=== PATIENT | female | born 1985 | race Caucasian/White ===

== ENCOUNTER 2017-07-05 17:49 | Inpatient (IN) | payer SELFPAY ==
[~2017-07-05] VITALS: Ht 154.9 cm; Wt 55.0 kg
[~2017-07-05 17:49] MED LIST: ACETAMINOPHEN500 M1 PO; CLEOCIN HCL150 MG PO; DOXYCYCLINE HY100 M2 PO; FLAGYL500 MG PO; IBUPROFEN200 MG PO; MOTRIN800 MG PO; PERCOCET 5/3251 TA1 PO
[2017-07-05 18:37] LABS: BASOPHILS 0.3 % (0-2); EOSINOPHILS 2.2 % (0-7); HEMATOCRIT 28.9 % (36.0-48.0); HEMOGLOBIN 9.5 g/dL (12-16); IMMATURE GRANULOCYTES 0.2 % (0-5); LYMPHOCYTES 17.5 % (15-50); MCH 28.4 pg (26.0-34.0); MCHC 32.9 g/dL (31.0-37.0); MCV 86.5 fL (80.0-100.0); MEAN PLATELET VOLUME 8.5 fL (7.4-10.4); MONOCYTES 9.1 % (2-11); NEUTROPHILS 70.7 % (40-80); RBC 3.34 10x6/uL (4.00-5.40); RDW 14.6 % (11.5-14.5); WBC 16.2 10x3/uL (4.8-10.8)
[2017-07-05 18:38] LABS: PLATELET COUNT 438 10x3/uL (130-400)
[2017-07-05 18:46] LABS: HCG SERUM NEGATIVE (NEGATIVE)
[2017-07-05 19:03] LABS: APPEARANCE HAZY (CLEAR); BILIRUBIN NEGATIVE (NEGATIVE); COLOR YELLOW (YELLOW); GLUCOSE NEGATIVE (NEGATIVE); KETONE NEGATIVE (NEGATIVE); LEUKOCYTE ESTERASE 1+ (NEGATIVE); NITRITE NEGATIVE (NEGATIVE); PROTEIN TRACE mg/dL (NEGATIVE); UROBILINOGEN NORMAL (NORMAL)
[2017-07-05 19:05] LABS: EPITHELIAL CELLS 0-5 /hpf (0-5); RED CELLS - URINE 0-5 /hpf (0-5)
[2017-07-05 19:07] LABS: BACTERIA FEW /hpf (NONE SEEN)
[2017-07-05 22:32] LABS: HCG SERUM NEGATIVE (NEGATIVE)
--- NOTE | 2017-07-05 23:30 | NUR ---
RECEIVED PT TO FLOOR FROM ER VIA STRETCHER. PT AMBULATED TO BED. DOXYCYCLINE INFUSING TO LEFT HAND/WRIST 18G IV. PT C/O PAIN AT IV SITE. IV HAS BLOOD RETURN AND IS PATENT. PT IS IV DRUG USER AND HAS LIMITED PLACES TO RESITE AN IV. PLACED ARM ON PILLOW AND SLOWED INFUSION. PT C/O ABDOMINAL PAIN 05/18. GAVE 1 TAB NORCO-10 FOR PAIN. PT EATING SANDWICH AND DRINKING SODA. REVIEWED HISTORY AND HOME MEDS. SPOKE WITH PT ABOUT HER DRUG USE AND SMOKING. GAVE RESOURCES AND ENCOURAGED N/A. PT DECLINED SMOKING COUNSELING BUT SAID SHE WOULD USE A NICOTINE. NO OTHER NEEDS. WILL REASSESS AND CONTINUE TO MONITOR.
[2017-07-05] MEDS ORDERED: ACETAMINOPHEN500 M1 PO (23:53)
[2017-07-06 01:28] VITALS: BP 124/86; Ht 154.9 cm; Wt 55.0 kg
[2017-07-06 04:00] VITALS: BP 101/62
[2017-07-06 08:09] VITALS: BP 115/65
--- NOTE | 2017-07-06 08:10 | NUR ---
ASSESSMENT PER FLOW SHEET.PT VERY SLEEPY THIS AM. DR DON HAS BEEN HERE TO SEE HER.PT IS WITHOUT DISTRESS.PAIN 2/10 SCALE TO LOWER AABDOMEN.CALL LIGHT IN REACH.
[2017-07-06 09:54] LABS: BASOPHILS 0.2 % (0-2); EOSINOPHILS 1.5 % (0-7); HEMATOCRIT 28.5 % (36.0-48.0); HEMOGLOBIN 9.2 g/dL (12-16); IMMATURE GRANULOCYTES 0.3 % (0-5); LYMPHOCYTES 11.7 % (15-50); MCHC 32.3 g/dL (31.0-37.0); MCV 86.6 fL (80.0-100.0); MEAN PLATELET VOLUME 8.6 fL (7.4-10.4); MONOCYTES 9.3 % (2-11); PLATELET COUNT 414 10x3/uL (130-400); RBC 3.29 10x6/uL (4.00-5.40); RDW 14.8 % (11.5-14.5); WBC 14.5 10x3/uL (4.8-10.8)
[2017-07-06 10:09] LABS: ALBUMIN 2.5 g/dL (3.4-5.0); ALKALINE PHOSPHATASE 83 U/L (46-116); ALT (SGPT) 26 U/L (10-68); CALC OSMOLALITY 270 mosm/kg (275-300); CALCIUM 8.4 mg/dL (8.5-10.1); CARBON DIOXIDE 24.1 mmol/L (21.0-32.0); CHLORIDE - SERUM 104 mmol/L (98-107); CREATININE - SERUM 0.6 mg/dL (0.6-1.3); GLUCOSE 102 mg/dL (74-106); POTASSIUM - SERUM 3.5 mmol/L (3.5-5.1); PROTEIN - SERUM 6.3 g/dL (6.4-8.2); SODIUM 137 mmol/L (136-145); UREA NITROGEN 4 mg/dL (7-18); eGFR NON AFRICAN AMERICAN > 90 mL/min (90-120)
--- NOTE | 2017-07-06 11:56 | NUR ---
REMAINS WITHOUT NEEDS.CALL LIGHT IN REACH
--- NOTE | 2017-07-06 12:04 | NUR ---
CALL TO PHARMACY FOR DOXYCYCLINE,SPOKE WITH LORENA
[2017-07-06 12:07] VITALS: BP 125/82
--- NOTE | 2017-07-06 15:44 | NUR ---
SLEEPING WITHOUT DISTRESS,WITHOUT SIGNS OF PAIN.MONITOR FOR NEEDS
[2017-07-06 16:06] VITALS: BP 113/62
[2017-07-06 19:00] VITALS: BP 122/70
--- NOTE | 2017-07-06 21:16 | NUR ---
REC'D RESTING IN BED. ALERT AND ORIENTED X4. DENIED PAIN AT THIS TIME. DENIED FURTHER NEEDS AT THIS TIME. INSTRUCTED TO CALL IF NEEDED ANYTHING. VERBALIZED UNDERSTANDING. NO DISTRESS NOTED. WILL ADMIN PM/AM MEDS PRESCRIBED. WILL CONT TO MONITOR.
--- NOTE | 2017-07-06 21:17 | NUR ---
MEHRDAD CORDOVA REPORTED TO ME THAT TEMP WAS 103.1, HAS NO TYLENOL ORDERED. HAS 4 BLANKETS ON HER AND THE ROOM IS STUFFY. REPORTED PAIN 04/18. ADMIN HYDROCODONE , REMOVED BLANKETS, PLACED A COOL TOWEL TO FORHEAD AND TURNED AIR ON. WILL RECHECK TEMP IN AND HOUR. WILL CONT TO MONITOR.
--- NOTE | 2017-07-06 23:47 | NUR ---
RESITED THE PATIENT'S IV IN THE L FA ON THE FIRST ATTEMPT WITH A 22G
[2017-07-07] VITALS: BP 110/69
[2017-07-07 04:00] VITALS: BP 114/79
--- NOTE | 2017-07-07 04:41 | NUR ---
HAD TO RECITE IV, TO LEFT FOREARM, IS PATENT AND FLUSHES. DC'D TO LEFT WRIST WITH CATHETER STILL INTACT.
[2017-07-07 06:49] LABS: BASOPHILS 0.2 % (0-2); EOSINOPHILS 0.4 % (0-7); HEMATOCRIT 29.7 % (36.0-48.0); HEMOGLOBIN 9.4 g/dL (12-16); IMMATURE GRANULOCYTES 0.3 % (0-5); LYMPHOCYTES 8.8 % (15-50); MCH 27.6 pg (26.0-34.0); MCHC 31.6 g/dL (31.0-37.0); MCV 87.4 fL (80.0-100.0); MEAN PLATELET VOLUME 8.9 fL (7.4-10.4); MONOCYTES 8.3 % (2-11); PLATELET COUNT 351 10x3/uL (130-400); RDW 14.8 % (11.5-14.5); WBC 13.8 10x3/uL (4.8-10.8)
--- NOTE | 2017-07-07 07:20 | NUR ---
ASSESSMENT PER FLOW SHEET.PT WITHOUT DISTRESS.STATES PAIN 5/10 SCALE TO LOWER ABDOMEN.SCD'S PLACED ON PT.MONITOR FOR NEEDS
[2017-07-07 07:32] LABS: ALBUMIN 2.6 g/dL (3.4-5.0); ALKALINE PHOSPHATASE 86 U/L (46-116); ALT (SGPT) 29 U/L (10-68); CALCIUM 8.4 mg/dL (8.5-10.1); CARBON DIOXIDE 22.7 mmol/L (21.0-32.0); CHLORIDE - SERUM 104 mmol/L (98-107); CREATININE - SERUM 0.6 mg/dL (0.6-1.3); GLUCOSE 103 mg/dL (74-106); PROTEIN - SERUM 6.3 g/dL (6.4-8.2); SODIUM 138 mmol/L (136-145); eGFR NON AFRICAN AMERICAN > 90 mL/min (90-120)
[2017-07-07 07:34] LABS: CALC OSMOLALITY 273 mosm/kg (275-300); UREA NITROGEN 6 mg/dL (7-18)
[2017-07-07 08:58] VITALS: BP 111/74
[2017-07-07 13:07] VITALS: BP 109/72
--- NOTE | 2017-07-07 15:12 | NUR ---
RESTING WITHOUT SIGNS OF DISTRESS AFTER IV PAIN MEDS ORDERED.
[2017-07-07 15:41] VITALS: BP 109/68
--- NOTE | 2017-07-07 16:35 | NUR ---
PAIN 0/10 SCALE PER PT.VERY SLEEPY.REISTRUCTED ON CLEAN CATCH URINE FOR LAB.REMAINS WITHOUT CHANGE.CONT PLAN OF CARE
[2017-07-07 22:56] LABS: APPEARANCE CLEAR (CLEAR); BILIRUBIN NEGATIVE (NEGATIVE); COLOR YELLOW (YELLOW); GLUCOSE NEGATIVE (NEGATIVE); KETONE NEGATIVE (NEGATIVE); LEUKOCYTE ESTERASE 2+ (NEGATIVE); NITRITE NEGATIVE (NEGATIVE); PROTEIN NEGATIVE (NEGATIVE); UROBILINOGEN NORMAL (NORMAL)
[2017-07-07 22:57] LABS: BACTERIA FEW /hpf (NONE SEEN); RED CELLS - URINE 0-5 /hpf (0-5)
[2017-07-08] VITALS: BP 122/70
[2017-07-08 04:00] VITALS: BP 102/74
[2017-07-08 06:01] LABS: BASOPHILS 0.3 % (0-2); EOSINOPHILS 1.8 % (0-7); HEMATOCRIT 32.9 % (36.0-48.0); HEMOGLOBIN 10.5 g/dL (12-16); IMMATURE GRANULOCYTES 0.5 % (0-5); MCH 27.6 pg (26.0-34.0); MCHC 31.9 g/dL (31.0-37.0); MCV 86.6 fL (80.0-100.0); MONOCYTES 10.1 % (2-11); NEUTROPHILS 70.3 % (40-80); PLATELET COUNT 378 10x3/uL (130-400); RDW 14.9 % (11.5-14.5)
[2017-07-08 06:07] LABS: WBC 8.7 10x3/uL (4.8-10.8)
[2017-07-08 06:24] LABS: ALBUMIN 2.4 g/dL (3.4-5.0); ALKALINE PHOSPHATASE 80 U/L (46-116); ALT (SGPT) 26 U/L (10-68); BILIRUBIN - TOTAL 0.23 mg/dL (0.2-1.3); CALCIUM 8.3 mg/dL (8.5-10.1); CARBON DIOXIDE 27.5 mmol/L (21.0-32.0); CHLORIDE - SERUM 101 mmol/L (98-107); CREATININE - SERUM 0.5 mg/dL (0.6-1.3); GLUCOSE 90 mg/dL (74-106); POTASSIUM - SERUM 3.4 mmol/L (3.5-5.1); PROTEIN - SERUM 6.8 g/dL (6.4-8.2); SODIUM 137 mmol/L (136-145); eGFR NON AFRICAN AMERICAN > 90 mL/min (90-120)
[2017-07-08 06:28] LABS: CALC OSMOLALITY 270 mosm/kg (275-300); UREA NITROGEN 4 mg/dL (7-18)
[2017-07-08 08:36] VITALS: BP 97/61
[2017-07-08] MEDS ORDERED: CIPRO500 MG PO (14:56)
[2017-07-08] MEDS ORDERED: DOXYCYCLINE HY100 M2 PO (14:56)
--- NOTE | 2017-07-08 17:07 | NUR ---
DISCHARGING HOME AT THIS TIME. RESPIRATIONS EVEN AND NON LABORED. DENIES QUESTIONS OR CONCERNS RELATED TO DISCHARGE.
--- NOTE | 2017-07-08 17:25 | NUR ---
DISCHARGE INSTURCTIONS DISCUSSED AT THIS TIME. NO QUESTIONS OR CONCERNS VOICED. NO IV ACCESS. F/U APPOINTMENTS AND NEW PERSCRIPTIONS DISCUSSED AT THIS TIME. BED LOW, CALL LIGHT IN REACH, DENIES NEEDS. CPOC.
== END 2017-07-08 17:26 | disposition home or self-care (01) | DRG 690 ==
LOC: D.ER 17:49 → D.MS 22:45
PROVIDERS: Nurse Practitioner Family; Obstetrics & Gynecology; ADMIT Family Medicine
DX: A56.11 Chlamydial female pelvic inflammatory disease (principal); F17.203 Nicotine dependence unspecified, with withdrawal; N39.0 Urinary tract infection, site not specified; F15.10 Other stimulant abuse, uncomplicated; R00.0 Tachycardia, unspecified

== ENCOUNTER 2017-12-20 13:50 | Emergency (ER) | payer MEDICAID ==
[2017-07-06 01:28] VITALS: BMI 22.9
[~2017-12-20 13:50] MED LIST changes: +CIPRO500 MG PO
[2017-12-20 14:20] LABS: HCG URINE NEGATIVE (NEGATIVE)
[2017-12-20 14:44] LABS: BASOPHILS 0.4 % (0-2); EOSINOPHILS 2.8 % (0-7); HEMATOCRIT 38.9 % (36.0-48.0); HEMOGLOBIN 12.3 g/dL (12-16); IMMATURE GRANULOCYTES 0.3 % (0-5); LYMPHOCYTES 25.4 % (15-50); MCH 27.4 pg (26.0-34.0); MCHC 31.6 g/dL (31.0-37.0); MCV 86.6 fL (80.0-100.0); MEAN PLATELET VOLUME 9.3 fL (7.4-10.4); MONOCYTES 8.6 % (2-11); NEUTROPHILS 62.5 % (40-80); PLATELET COUNT 383 10x3/uL (130-400); RBC 4.49 10x6/uL (4.00-5.40); RDW 15.7 % (11.5-14.5); WBC 12.6 10x3/uL (4.8-10.8)
[2017-12-20 14:52] LABS: APTT 31.3 SECONDS (22.8-39.4); INR 0.91 (0.85-1.17); PROTIME 11.9 SECONDS (11.6-15.0)
[2017-12-20 14:57] LABS: ALBUMIN 3.4 g/dL (3.4-5.0); ALKALINE PHOSPHATASE 113 U/L (46-116); ALT (SGPT) 78 U/L (10-68); BILIRUBIN - TOTAL 0.15 mg/dL (0.2-1.3); CALC OSMOLALITY 274 mosm/kg (275-300); CALCIUM 8.6 mg/dL (8.5-10.1); CARBON DIOXIDE 29.3 mmol/L (21.0-32.0); CHLORIDE - SERUM 103 mmol/L (98-107); CREATININE - SERUM 0.5 mg/dL (0.6-1.3); GLUCOSE 88 mg/dL (74-106); POTASSIUM - SERUM 4.2 mmol/L (3.5-5.1); PROTEIN - SERUM 7.4 g/dL (6.4-8.2); SODIUM 139 mmol/L (136-145); UREA NITROGEN 8 mg/dL (7-18); eGFR NON AFRICAN AMERICAN > 90 mL/min (90-120)
== END 2017-12-20 15:53 | disposition home or self-care (01) ==
LOC: D.ER 13:50
PROVIDERS: Emergency Medicine
DX: G51.0 Bell's palsy (principal); G51.8 Other disorders of facial nerve; F17.200 Nicotine dependence, unspecified, uncomplicated

== ENCOUNTER 2018-01-13 14:12 | Emergency (ER) | payer MEDICAID ==
[2017-07-06 01:28] VITALS: BMI 22.9
== END 2018-01-13 16:35 | disposition home or self-care (01) ==
LOC: D.ER 14:12
DX: G51.0 Bell's palsy (principal); R51 Headache